=== PATIENT | male | born 1965 | race Caucasian/White ===

== ENCOUNTER 2016-11-10 11:20 | Observation (INO) | payer MEDICARE, OTHER ==
[~2016-11-10] VITALS: Ht 170.2 cm; Wt 103.5 kg
[~2016-11-10 11:20] MED LIST: ACET1TAB40 PO; AMLO-147 PO; AMOX1TAB10 PO; ASPI-535 PO; ATOR40TA68 PO; BACTDS PO; BENA40TA54 PO; CEPH-443 PO; FLUT9.9S NASAL; METO100T13 PO; SPIR25TA PO; TICA90TA PO
[2016-11-10 13:52] LABS: BASOPHIL # 0.1 10^3/ul (0.0-0.1); BASOPHILS % 0.6 % (0.0-2.0); EOSINOPHILS # 0.1 10^3/ul (0.0-0.5); EOSINOPHILS % 1.2 % (0.0-7.0); HEMATOCRIT 47.5 % (42.0-52.0); HEMOGLOBIN 16.3 g/dl (14.0-18.0); LYMPHOCYTES # 1.3 10^3/ul (0.8-2.9); LYMPHOCYTES % 15.2 % (15.0-51.0); MEAN CORPUSCULAR HEMOGLOBIN 32.4 pg (29.0-33.0); MEAN CORPUSCULAR HGB CONC 34.3 g/dl (32.0-37.0); MEAN CORPUSCULAR VOLUME 94.4 fl (82.0-101.0); MEAN PLATELET VOLUME 9.6 fl (7.4-10.4); MONOCYTE # 0.5 10^3/ul (0.3-0.9); NEUTROPHILS % 76.5 % (39.0-77.0); PLATELET COUNT 294 10^3/UL (140-415); RED BLOOD COUNT 5.03 10^6/ul (4.70-6.10); RED CELL DISTRIBUTION WIDTH 13.3 % (11.5-14.5); WHITE BLOOD COUNT 8.3 10^3/ul (4.8-10.8)
--- NOTE | 2016-11-10 13:54 | RADRPT ---
PROCEDURE: Chest x-ray CLINICAL INDICATION: Chest pain TECHNIQUE: Chest single view COMPARISON: 05/10/2013 FINDINGS: There is stable moderate cardiomegaly. The pulmonary vessels are normal in caliber. There is linear right lower lobe atelectasis. Lungs otherwise clear. Costophrenic angles are sharp. The bony thorax is unremarkable. IMPRESSION: 1. Stable mild cardiomegaly. 2. Linear right lower lobe atelectasis RPTAT: HH .Kaushik Hdz MD, Date Time Electronically viewed and signed by .Kaushik Hdz MD, on 11/10/2016 13:53 .W/
--- NOTE | 2016-11-10 13:57 | ERA ---
ER Documentation Chief Complaint Date/Time DATE: 11/10/16 TIME: 13:51 Chief Complaint loss balance x 3 days, swelling legs, pt deaf, has cerebral palsy HPI This is a 51-year-old male with a past medical history of cerebral palsy, deafness, hypertension, hyperlipidemia, coronary artery disease with a previous [place] status post stenting, currently on Brilinta and aspirin, congestive heart failure with chronic lower extremity edema on Aldactone now presenting with 2-3 days of lightheadedness, dizziness, intermittent left-sided chest pressure and worsening lower extremity edema. The patient wrote a note to his mom this morning indicating that he has had issues with lightheadedness and generally feeling unwell and felt that he needed to be evaluated by a doctor. The patient currently has no fever or chills. He does not feel congested. He has had no cold or flulike symptoms. He currently does not have any chest pain. He is not short of breath. He does not have any abdominal pain, but he does feel like his abdomen is full. He has had no changes to bowel movements or urination. The patient does endorse heaviness in his legs but no numbness or tingling. He states that they feel heavy because they feel full. ROS All systems reviewed and are negative except as per history of present illness. Medications Home Meds Reported Medications Fluticasone-Vilanterol (Breo Ellipta Inhaler) 100-25 Mcg/Actuation Aer.pow.ba, 1 PUFF INHALATION QAM, #1 INHALER 11/10/16 Furosemide* (Furosemide*) 40 Mg Tablet, 40 MG PO DAILY, TAB 11/10/16 Metoprolol Succinate* (Toprol XL*) 100 Mg Tab.sr.24h, 100 MG PO DAILY, TAB 06/20/15 Amlodipine Besylate* (Amlodipine Besylate*) 10 Mg Tablet, 10 MG PO DAILY 05/10/13 Spironolactone* (Aldactone*) 25 Mg Tablet, 25 MG PO DAILY 05/10/13 Benazepril Hcl* (Lotensin*) 40 Mg Tablet, 40 MG PO DAILY 05/10/13 Aspirin Ec (Aspir 81) 81 Mg Tablet.dr, 81 MG PO DAILY 05/10/13 Discontinued Reported Medications Atorvastatin* (Atorvastatin*) 40 Mg Tablet, 40 MG PO HS 05/10/13 Ticagrelor* (Brilinta*) 90 Mg Tablet, 90 MG PO BID 05/10/13 Discontinued Scripts Acetaminophen with Codeine (Acetaminophen-Cod #3 Tablet) 1 Each Tablet, 1 TAB PO Q6H Y for PAIN, #10 TAB Prov:DAHLIA LEMONS MD 12/17/15 Cephalexin* (Keflex*) 500 Mg Capsule, 500 MG PO QID for 10 Days, CAP Prov:DAHLIA LEMONS MD 12/17/15 Sulfamethoxazole-Trimethoprim* (Bactrim* DS) 800-160 Mg Tab, 1 TAB PO BID for 10 Days, TAB Prov:DAHLIA LEMONS MD 12/17/15 Amox Tr/Potassium Clavulanate (Amox Tr-K Clv 875-125 Mg Tab) 1 Tab Tablet, 1 TAB PO BID, #20 TAB Prov:CARMITA SOLO 06/20/15 Fluticasone Propionate (Flonase Allergy Relief) 9.9 Ml [place].susp, 1 SPRAY NASAL BID, #1 BOTTLE TO EACH NOSTRIL Prov:CARMITA SOLO 06/20/15 Allergies Allergies: Coded Allergies: No Known Allergy (Unverified , 11/10/16) PMhx/Soc History of Surgery: No (ORTHOPEDIC ON LEGS R/T HX OF CP, STENT PLACEMENT) Anesthesia Reaction: No Hx Neurological Disorder: Yes (R/T CEREBRAL PALSY) Hx Respiratory Disorders: No Hx Cardiac Disorders: Yes (HTN, STENT PLACED, [place]) Hx Psychiatric Problems: No Hx Miscellaneous Medical Probl: No Hx Alcohol Use: No Hx Substance Use: No Hx Tobacco Use: No Smoking Status: Never smoker FmHx Family History: coronary disease, No diabetes Physical Exam Vitals Vital Signs Date Time Temp Pulse Resp B/P Pulse Ox O2 Delivery O2 Flow Rate FiO2 11/10/16 14:40 98.2 79 18 115/78 100 Room Air 11/10/16 13:44 Nasal Cannula 11/10/16 12:58 98.0 77 20 126/78 100 Room Air 11/10/16 11:30 98.1 74 18 120/74 99 Physical Exam Const: Well Nourished, NAD Head: Atraumatic Eyes: Normal Conjunctiva ENT: Normal External Ears, Nose and Mouth. Neck: Full range of motion. ~ No meningismus. Resp: Clear to auscultation bilaterally Cardio: Regular rate and rhythm, no murmurs Abd: Soft, non tender. Distended. Normal bowel sounds Skin: No petechiae or rashes Back: No midline or flank tenderness, no ulcers Ext: No cyanosis. 2+ BLE edema, limited ROM at hips 2/2 heaviness of his legs Neur: Awake and alert, No focal deficits, CN intact, sensation intact, mild spastic plegia to BLE Psych: Normal Mood and Affect Result Diagram: 11/10/16 1332 11/10/16 1332 Results 24 hrs Laboratory Tests Test 11/10/16 13:32 White Blood Count 8.310^3/ul Red Blood Count 5.0310^6/ul Hemoglobin 16.3g/dl Hematocrit 47.5% Mean Corpuscular Volume 94.4fl Mean Corpuscular Hemoglobin 32.4pg Mean Corpuscular Hemoglobin Concent 34.3g/dl Red Cell Distribution Width 13.3% Platelet Count 91201^3/UL Mean Platelet Volume 9.6fl Neutrophils % 76.5% Lymphocytes % 15.2% Monocytes % 6.0% Eosinophils % 1.2% Basophils % 0.6% Nucleated Red Blood Cells % 0.0/100WBC Neutrophils # (Manual) 6.310^3/ul Lymphocytes # 1.310^3/ul Monocytes # 0.510^3/ul Eosinophils # 0.110^3/ul Basophils # 0.110^3/ul Nucleated Red Blood Cells # 0.010^3/ul Prothrombin Time 11.9Sec Prothrombin Time Ratio 0.9 INR International Normalized Ratio 0.88 Activated Partial Thromboplast Time 32.0Sec Sodium Level 139mmol/L Potassium Level 4.6mmol/L Chloride Level 102mmol/L Carbon Dioxide Level 26mmol/L Anion Gap 16 Blood Urea Nitrogen 11mg/dl Creatinine 1.05mg/dl Glucose Level 96mg/dl Calcium Level 10.0mg/dl Total Bilirubin 0.2mg/dl Direct Bilirubin 0.00mg/dl Indirect Bilirubin 0.2mg/dl Aspartate Amino Transf (AST/SGOT) 21IU/L Alanine Aminotransferase (ALT/SGPT) 30IU/L Alkaline Phosphatase 87IU/L Troponin I < 0.012ng/ml B-Type Natriuretic Peptide 115PG/ML Total Protein 8.4g/dl Albumin 4.6g/dl Globulin 3.80g/dl Albumin/Globulin Ratio 1.21 Procedures/MDM The patient's presenting with fatigue, intermittent lightheadedness and progressive worsening lower extremity edema. This is been significantly distressing to the family and patient. He presents for further evaluation. EKG Read by me: Rate/Rhythm: Regular rate and rhythm at a rate of 76 Intervals: Normal [place]: Normal No St or [place] changes Impression: No evidence of acute ischemia or arrhythmia His CXR was read by the radiologist as the following: CXR FINDINGS: There is stable moderate cardiomegaly. The pulmonary vessels are normal in caliber. There is linear right lower lobe atelectasis. Lungs otherwise clear. Costophrenic angles are sharp. The bony thorax is unremarkable. IMPRESSION: Stable mild cardiomegaly. Linear right lower lobe atelectasis Electronically viewed and signed by .Kaushik Hdz MD, MD on 11/10/2016 13:53 The patient's CMP and CBC were unremarkable. The patient's troponin is negative. The patient's BNP is not elevated. I see no signs of hepatic or renal dysfunction. I see no evidence in the blood work for a worsening cardiac pathology. I discussed the case with the patient's primary care physician, Dr. Leon, who felt that the patient warranted admission given the significant concerns of the patient and his mother. The patient will be admitted under his service on a medical/surgical floor for increased diuresis given his significant bilateral lower extremity edema. I do not see any signs of cellulitis clinically. My suspicion for bilateral DVT is low, but a Doppler may be warranted in the hospital if there is no significant improvement after diuresis. Departure Diagnosis: Primary Impression: Bilateral lower extremity edema Condition: KEVIN Altamirano MD Nov 10, 2016 13:57 Electronically viewed and signed by .Kaushik Hdz MD, MD on 11/10/2016 13:53 The patient's CMP and CBC were unremarkable. The patient's troponin is negative. The patient's BNP is not elevated. I see no signs of hepatic or renal dysfunction. I see no evidence in the blood work for a worsening cardiac pathology. I discussed the case with the patient's primary care physician, Dr. Leon, who felt that the patient warranted admission given the significant concerns of the patient and his mother. The patient will be admitted under his service on a medical/surgical floor for increased diuresis given his significant bilateral lower extremity edema. I do not see any signs of cellulitis clinically. My suspicion for bilateral DVT is low, but a Doppler may be warranted in the hospital if there is no significant improvement after diuresis. Departure Diagnosis: Primary Impression: Bilateral lower extremity edema KEVIN SIDDIQUI MD Nov 10, 2016 13:57
[2016-11-10 14:07] LABS: INR 0.88; PROTIME 11.9 Sec (12.2-14.2); PT RATIO 0.9
[2016-11-10 14:16] LABS: ALANINE AMINOTRANSFERASE 30 IU/L (13-69); ALBUMIN 4.6 g/dl (3.3-4.9); ALBUMIN/GLOBULIN RATIO 1.21; ALKALINE PHOSPHATASE 87 IU/L (42-121); ANION GAP 16 (8-16); ASPARTATE AMINO TRANSFERASE 21 IU/L (15-46); BILIRUBIN,INDIRECT 0.2 mg/dl (0-1.1); BILIRUBIN,TOTAL 0.2 mg/dl (0.2-1.3); BLOOD UREA NITROGEN 11 mg/dl (7-20); CARBON DIOXIDE 26 mmol/L (21-31); CHLORIDE 102 mmol/L (97-110); GLUCOSE 96 mg/dl (70-220); POTASSIUM 4.6 mmol/L (3.5-5.1); SODIUM 139 mmol/L (135-144); TOTAL PROTEIN 8.4 g/dl (6.1-8.1)
[2016-11-10 14:28] LABS: B-TYPE NATRIURETIC PEPTIDE 115 PG/ML (0-125)
[2016-11-10 14:36] LABS: TROPONIN-I < 0.012 ng/ml (0.00-0.12)
[2016-11-10 15:26] LABS: CREATININE 1.05 mg/dl (0.61-1.24)
[2016-11-10] MEDS ORDERED: FLUT1AER INHALATION (16:42)
[2016-11-10] MEDS ORDERED: FURO40TA4 PO (16:42)
[2016-11-10] MEDS ORDERED: ONDANSETRON 4 MG INJ IV PRN ×2 (17:00→21:00)
[2016-11-10] MEDS ORDERED: ACETAMINOPHEN 325 MG TAB PO PRN ×2 (17:00→21:00)
[2016-11-10 18:14] VITALS: PULSE 69; TEMP 98.1
[2016-11-10 19:54] VITALS: Ht 170.2 cm; Wt 103.5 kg
--- NOTE | 2016-11-10 19:54 | RADRPT ---
PROCEDURE: ULTRASOUND OF THE BILATERAL LOWER EXTREMITY VENOUS SYSTEMS WITH DOPPLER CLINICAL INDICATION: 51 years of age, male. Bilateral leg swelling . COMPARISON: None available. TECHNIQUE: Real-time longitudinal and transverse sonographic mtaa scale imaging with and without com pression, as well as color and duplex Doppler imaging before and after augmentation, was obtained of the deep system of the bilateral lower extremities, including the common femoral, femoral, poplitea l, posterior tibial, and peroneal veins. FINDINGS: Right common femoral vein: No evidence of thrombus. Right femoral vein: No evidence of thrombus. Right popliteal vein: No evidence of thrombus. Right calf veins: Patent where visualized. Left common femoral vein: No evidence of thrombus. Left femoral vein: No evidence of thrombus. Left popliteal vein: No evidence of thrombus. Left calf veins: Patent where visualized. Additional comment: None. IMPRESSION: Negative for ultrasound evidence of deep venous thrombosis in the right or left lower extremity. RPTAT: HCTS Physician Axel Date Time Electronically viewed and signed by Physician Axel on 11/10/2016 19:53 BHAVIK/
[2016-11-10 20:13] VITALS: BP 132/75; RESP 19
[2016-11-10] MEDS ORDERED: morphine 2 MG INJ IV PRN (21:00)
[2016-11-10] MEDS ORDERED: NACL 0.9% 3 ML SYG IV SCH (21:00)
[2016-11-10] MEDS ORDERED: ZOLPIDEM 5 MG TAB PO PRN (21:00)
[2016-11-10] MEDS ORDERED: DOCUSATE SODIUM 100 MG CAP PO PRN (21:00)
[2016-11-10] MEDS ORDERED: ALBUTEROL/IPRATROPIUM (NEB) 3 ML AMP HHN PRN (21:00)
[2016-11-10] MEDS ORDERED: LORAZEPAM 0.5 MG TAB PO PRN (21:00)
[2016-11-10] MEDS ORDERED: MAGNESIUM HYDROXIDE 30ML CUP PO PRN (21:00)
[2016-11-10] MEDS: SALMETEROL/FLUTICASONE 250/50 INHA INH SCH (21:12)
[2016-11-10] MEDS: FUROSEMIDE 40 MG INJ IV SCH (21:13)
--- NOTE | 2016-11-10 22:36 | HP ---
DATE OF ADMISSION: 11/10/2016 REASON FOR ADMISSION: Lower extremity edema, unsteady gait. HISTORY OF PRESENT ILLNESS: Patient is a 51-year-old male, very well known to me, with history of cerebral palsy, walks with crutches. He is also deaf. Patient has history of nephrolithiasis, hypertension, dyslipidemia, coronary artery disease, status post PCI of the RCA, on Brilinta, also history of [place], constipation, hyperuricemia, nephrolithiasis, status post lithotripsy in the past. He has also mild asthma. Patient was in his usual state of health up until a few days prior to admission, when he noted increasing lower extremity edema. On the day of admission and the day prior, his edema has worsened, to the point that he could not walk straight. He almost falls. He presented to the ER with increased lower extremity pain and discomfort. In the ER patient was evaluated. Vital signs were all stable. Patient was noted to have +3 pitting edema. In the ER patient received Zofran and Tylenol and was admitted for further care. Otherwise, he denies any chest pain. He denies any shortness of breath. Denies any fever or chills. Denies any other complaints besides the edema and unstable gait and discomfort and pain in the lower extremities. PAST MEDICAL HISTORY: Includes coronary artery disease, deafness, cerebral palsy, nephrolithiasis, history of tobacco use in the past, asthma, CHF, [place]. SOCIAL HISTORY: Smokes 1-2 packs a day more than 8 years ago. Uses . He likes to drink soda. No IV drug use. ALLERGIES: NO KNOWN DRUG ALLERGIES. FAMILY HISTORY: Father from cardiac-related problems, and he had a CABG. Mother had breast cancer. She is doing well. PAST SURGICAL HISTORY: Ligament surgery, knee surgeries. REVIEW OF SYSTEMS: Per HPI. MEDICATIONS: Include: 1. Breo 1 puff daily. 2. Aspirin 81 mg a daily. 3. Metoprolol succinate 100 mg daily. 4. Furosemide 40 mg daily. 5. Amlodipine 10 mg daily. 6. Benazepril 40 mg daily. 7. Aldactone 25 mg daily. PHYSICAL EXAMINATION: VITAL SIGNS: Temperature 98, pulse 65, respirations 19, blood pressure 132/75, saturation 93 percent to 100 percent on room air. GENERAL: Patient is in no acute distress, well-built. Patient is slightly pale. CARDIOVASCULAR: S1 and S2. Faint wheezing bilaterally. ABDOMEN: Soft, nontender. LOWER EXTREMITIES: +3 edema, with slight redness, more redness and pedal edema; it is quite significant. Patient overall moving all extremities. LABORATORY: Sodium is 139, potassium 4.6, chloride 102, bicarb 26, BUN is 11, creatinine 1.05, glucose 96. LFTs are normal. Troponin negative. INR 0.88. CBC: White count 8.3, hemoglobin 16.3, hematocrit 47, platelet count 294, neutrophils 77 percent, lymphocytes 15 percent. A lower extremity venous ultrasound is negative for DVT. This was done only of the right lower extremity. Chest x-ray shows stable mild cardiomegaly, linear right lower lobe atelectasis, right lower lobe atelectasis. EKG showed normal sinus rhythm, 76 beats per minute. ASSESSMENT AND PLAN: This is a 51-year-old male, with history of cerebral palsy, peripheral edema, asthma, hypertension, coronary artery disease, history of myocardial infarction, status post percutaneous coronary intervention of the right coronary artery, now presented with increased lower extremity edema, severe, with unsteady gait. 1. Lower extremity edema, severe, likely from peripheral vascular disease and his cerebral palsy. Patient will be given IV diuretic therapy with 40 IV Lasix twice a day. Keep legs elevated. Potassium supplement will be provided and will monitor. 2. History of asthma. Breathing treatment p.r.n. and will be provided O2 support as needed. 3. Coronary artery disease. Continue aspirin, beta blockers, and Lovenox will be started for deep venous thrombosis prophylaxis. No evidence of deep venous thrombosis. 4. Stable positive supportive care. 5. Once edema has improved, monitor gait and mobility. 6. History of hyperuricemia. Previously on allopurinol. 7. Diet. Will be placed on 2-g sodium diet. 8. Disposition soon. Case discussed with mother over the phone. Dictated By: Devin Leon MD /lisa/charly /Document#: [id number]
[2016-11-11 02:07] VITALS: BP 115/66; RESP 19
[2016-11-11] MEDS: FUROSEMIDE 40 MG INJ IV SCH ×2 (05:45→18:37)
[2016-11-11] MEDS ORDERED: PANTOPRAZOLE (EC) 40 MG TAB PO SCH (06:00)
[2016-11-11 06:08] LABS: BASOPHILS % 0.7 % (0.0-2.0); EOSINOPHILS # 0.2 10^3/ul (0.0-0.5); EOSINOPHILS % 3.9 % (0.0-7.0); HEMATOCRIT 42.5 % (42.0-52.0); HEMOGLOBIN 14.9 g/dl (14.0-18.0); LYMPHOCYTES # 1.9 10^3/ul (0.8-2.9); LYMPHOCYTES % 31.1 % (15.0-51.0); MEAN CORPUSCULAR HEMOGLOBIN 33.3 pg (29.0-33.0); MEAN CORPUSCULAR HGB CONC 35.1 g/dl (32.0-37.0); MEAN CORPUSCULAR VOLUME 94.9 fl (82.0-101.0); MEAN PLATELET VOLUME 9.9 fl (7.4-10.4); MONOCYTE # 0.6 10^3/ul (0.3-0.9); MONOCYTES % 10.3 % (0.0-11.0); NEUTROPHILS % 53.5 % (39.0-77.0); PLATELET COUNT 258 10^3/UL (140-415); RED BLOOD COUNT 4.48 10^6/ul (4.70-6.10); WHITE BLOOD COUNT 5.9 10^3/ul (4.8-10.8)
[2016-11-11 06:38] LABS: ALBUMIN 3.6 g/dl (3.3-4.9); ALBUMIN/GLOBULIN RATIO 1.24; BILIRUBIN,INDIRECT 0.5 mg/dl (0-1.1); BILIRUBIN,TOTAL 0.5 mg/dl (0.2-1.3); CALCIUM 9.3 mg/dl (8.4-10.2); CREATININE 1.02 mg/dl (0.61-1.24); POTASSIUM 3.6 mmol/L (3.5-5.1); TOTAL PROTEIN 6.5 g/dl (6.1-8.1)
[2016-11-11 07:02] LABS: THYROID STIMULATING HORMONE 7.71 MIU/L (0.465-4.680)
[2016-11-11 07:49] VITALS: BP 129/74; RESP 16
--- NOTE | 2016-11-11 08:36 | CONS ---
Date/Time of Note Date/Time of Note DATE: 11/11/16 TIME: 08:28 Assessment/Plan Assessment/Plan Chief Complaint/Hosp Course A/P: 1. LE edema: probably related to norvasc. R/O CHF ECHO was ordered. cont CIARRA Cont aldactone lasix as tolerated. 2. HTN: well controlled now cont aldactone toprol xl and CIARRA stop norvasc due to edema 3. CAD: HX [place], HX PCI RCA: no angina now. cont ASA/ toprol will add statin. check lipid panel 4. dyslipidemia: will add lipitor and check lipid panel 5. hx cerebral palsy and deafness: defer to IM. Thank you for this referral. I will continue to follow along with you. SHANE ISAACS MD [facility] Problems: Consultation Date/Type/Reason Admit Date/Time Nov 10, 2016 at 16:50 Date of Consultation: Nov 11, 2016 Type of Consultation: CARDIOLOGY Reason for Consultation CAD. LE Edema./ R/O CHF. Referring Provider: JANIS AC MD Hx of Present Illness CC: LE edema HPI: dear Dr. Ac thank you for this referral. Patient is a 51-year-old male, very well known to me, with history of cerebral palsy, CAD who walks with crutches. He is also deaf. Patient was admitted with increasing lower extremity edema. Appears to be bilateral. History was obtained from the patient was a difficult to get history from him due to his deafness. From discussion with the physicians including Dr. Moya Review of the old chart. Patient denies any chest pain or pressure to me denies any PND or orthopnea to me. The leg swelling has been severe over the past few days to weeks. It has improved today. He has been placed on IV Lasix. PAST MEDICAL HISTORY: Includes coronary artery disease, s/p [place] 2012, PCI RCA 2012. deafness, cerebral palsy, nephrolithiasis, history of tobacco use in the past, asthma, CHF, [place]. HTN, dyslipidemia. SOCIAL HISTORY: Smokes 1-2 packs a day more than 8 years ago. He likes to drink soda. No IV drug use. ALLERGIES: NO KNOWN DRUG ALLERGIES. FAMILY HISTORY: Father from cardiac-related problems, and he had a CABG. Mother had breast cancer. She is doing well. PAST SURGICAL HISTORY: Ligament surgery, knee surgeries. PCI RCA 2012 REVIEW OF SYSTEMS: as above only. he walks with crutches MEDICATIONS: Include: 1. Breo 1 puff daily. 2. Aspirin 81 mg a daily. 3. Metoprolol succinate 100 mg daily. 4. Furosemide 40 mg daily. 5. Amlodipine 10 mg daily. 6. Benazepril 40 mg daily. 7. Aldactone 25 mg daily. Social History Smoking Status: Never smoker Exam/Review of Systems Vital Signs Vitals Vital Signs Date Time Temp Pulse Resp B/P Pulse Ox O2 Delivery O2 Flow Rate FiO2 11/11/16 07:49 97.6 73 16 129/74 93 11/10/16 18:14 Room Air Intake and Output 11/10/16 11/10/16 11/11/16 15:00 23:00 07:00 Intake Total 960 ml Output Total 1800 ml Balance -840 ml Exam General: no acute distress HEENT: NC/AT. pupils are equal. round. NECK: NO JVD. no stridor. CV: RRR. systolic murmur; no gallop or rubs. PULM: no wheezing or rhonchi. GI: SOFT, NT, ND, no rebound or guarding Extremity: + B/L LE edema. no clubbing. neuro: awake and alert, OX3. Psych: calm and pleasant rectal: deferred : normal ECG reviewed NSR normal Results Result Diagram: 11/11/16 0520 11/11/16 0520 Results 24 hrs Laboratory Tests Test 11/10/16 13:32 11/11/16 05:20 White Blood Count 8.3 5.9 # Red Blood Count 5.03 4.48 L Hemoglobin 16.3 14.9 Hematocrit 47.5 42.5 Mean Corpuscular Volume 94.4 94.9 Mean Corpuscular Hemoglobin 32.4 33.3 H Mean Corpuscular Hemoglobin Concent 34.3 35.1 Red Cell Distribution Width 13.3 13.0 Platelet Count 294 258 Mean Platelet Volume 9.6 9.9 Neutrophils % 76.5 53.5 Lymphocytes % 15.2 31.1 Monocytes % 6.0 10.3 Eosinophils % 1.2 3.9 Basophils % 0.6 0.7 Nucleated Red Blood Cells % 0.0 0.0 Neutrophils # (Manual) 6.3 3.2 Lymphocytes # 1.3 1.9 Monocytes # 0.5 0.6 Eosinophils # 0.1 0.2 Basophils # 0.1 0.0 Nucleated Red Blood Cells # 0.0 0.0 Prothrombin Time 11.9 L Prothrombin Time Ratio 0.9 INR International Normalized Ratio 0.88 Activated Partial Thromboplast Time 32.0 Sodium Level 139 137 Potassium Level 4.6 3.6 Chloride Level 102 99 Carbon Dioxide Level 26 31 Anion Gap 16 11 Blood Urea Nitrogen 11 12 Creatinine 1.05 1.02 Glucose Level 96 83 Calcium Level 10.0 9.3 Total Bilirubin 0.2 0.5 Direct Bilirubin 0.00 0.00 Indirect Bilirubin 0.2 0.5 Aspartate Amino Transf (AST/SGOT) 21 18 Alanine Aminotransferase (ALT/SGPT) 30 29 Alkaline Phosphatase 87 65 Troponin I < 0.012 B-Type Natriuretic Peptide 115 Total Protein 8.4 H 6.5 # Albumin 4.6 3.6 # Globulin 3.80 H 2.90 Albumin/Globulin Ratio 1.21 1.24 Hemoglobin A1c 5.0 Thyroid Stimulating Hormone (TSH) 7.710 H Medications Medications Current Medications Ondansetron HCl (Zofran Inj) 4 mg Q6H PRN IV NAUSEA AND/OR VOMITING; Start 11/10 at 21:00 Acetaminophen (Tylenol Tab) 650 mg Q6H PRN PO PAIN LEVEL 1-3 OR FEVER; Start at 21:00 Morphine Sulfate (morphine) 2 mg Q4H PRN IV SEVERE PAIN LEVEL 7-10; Start at 21:00 Docusate Sodium (Colace) 100 mg Q12H PRN PO CONSTIPATION; Start 11/10/16 at 21: 00 Magnesium Hydroxide (Milk Of Mag) 30 ml DAILY PRN PO CONSTIPATION; Start at 21:00 Zolpidem Tartrate (Ambien) 5 mg QHS PRN PO SLEEP; Start 11/10/16 at 21:00 Pantoprazole (Protonix Tab) 40 mg DAILY@06 PO Last administered on 11/11/16t 05: 45; Admin Dose 40 MG; Start 11/11/16 at 06:00 Enoxaparin Sodium (Lovenox) 40 mg DAILY SC ; Start 11/11/16 at 09:00 Aspirin (Aspirin) 81 mg DAILY PO ; Start 11/11/16 at 09:00 Metoprolol Succinate (Toprol Xl) 50 mg DAILY PO ; Start 11/11/16 at 09:00 Spironolactone (Aldactone) 25 mg DAILY PO ; Start 11/11/16 at 09:00 Salmeterol Xinafoate/ Fluticasone (Advair 250/50 Diskus) 1 inh BID INH Last administered on 11/10/16t 21:12; Admin Dose 1 INH; Start 11/10/16 at 21:00 Lorazepam (Ativan) 0.5 mg Q6H PRN PO ANXIETY; Start 11/10/16 at 21:00 Atorvastatin Calcium (Lipitor) 20 mg HS PO ; Start 11/11/16 at 21:00; Status UNV Benazepril HCl (Lotensin) 20 mg DAILY PO ; Start 11/11/16 at 09:00; Status UNV SHANE ISAACS MD Nov 11, 2016 08:36
[2016-11-11] MEDS ORDERED: SPIRONOLACTONE 25 MG TAB PO SCH (09:00)
[2016-11-11] MEDS ORDERED: ASPIRIN 81 MG TAB PO SCH (09:00)
[2016-11-11] MEDS ORDERED: BENAZEPRIL 20 MG TAB PO SCH (09:00)
[2016-11-11] MEDS ORDERED: LOSARTAN 25 MG TAB PO SCH (09:00)
[2016-11-11] MEDS ORDERED: ENOXAPARIN 40 MG/0.4 ML SYG SC SCH (09:00)
[2016-11-11] MEDS ORDERED: METOPROLOL (XL) 50 MG TAB PO SCH (09:00)
[2016-11-11 09:09] LABS: CHOL/HDL RATIO 5.2 RATIO
[2016-11-11] MEDS: SALMETEROL/FLUTICASONE 250/50 INHA INH SCH (09:31)
--- NOTE | 2016-11-11 14:27 | PDOCDIS ---
Discharge Instructions CONDITION Patient Condition: Stable HOME CARE INSTRUCTIONS: Special Diet: 2GM NA ACTIVITY: Activity Restrictions: Slowly Increase Activity FOLLOW UP/APPOINTMENTS Follow-up Plan follow up pmd within a week, see prescriptions JANIS AC MD Nov 11, 2016 14:27
[2016-11-11] MEDS ORDERED: FURO40TA4 PO (14:28)
[2016-11-11] MEDS ORDERED: ATOR20TA65 PO (14:33)
[2016-11-11] MEDS ORDERED: ATORVASTATIN 20 MG TAB PO SCH (21:00)
--- NOTE | 2016-11-12 04:48 | DS ---
DATE OF ADMISSION: 11/10/2016 DATE OF DISCHARGE: 11/11/2016 REASON FOR ADMISSION: Lower extremity edema, Unsteady gait and lower extremity pain. HOSPITAL COURSE: Patient is a 51-year-old male, very well-known to me, with history of cerebral palsy, walks with crutches, history of deafness, history of nephrolithiasis, hypertension, dyslipidemia, coronary artery disease, status post PCI of the RCA, previously on Brilinta, also history of [place], constipation, hyperuricemia, nephrolithiasis, status post lithotripsy in the past. Also history of asthma. Patient was in usual state of health up until the last few days. Prior to admission, he noted worsening lower extremity edema. On the day of admission, it was much more severe, to the point that he could not walk. He presented to the ER for evaluation. Family was very concerned. It was decided to admit the patient under observation. During his stay, he was placed on IV Lasix with good response. I also consulted the loom operator, Dr. Mensah, and he recommended to stop the amlodipine, which may exacerbate his edema and replace them with statins. The patient is doing better. He wants to be discharge. Vitals are stable. Temperature 97.6, pulse 73, respirations 16, blood pressure 110/74, saturation 93 percent to 100 percent. DISCHARGE MEDICATIONS: The patient was discharged with this, with the following medications: 1. Atorvastatin 10 mg at bedtime. 2. Aspirin 81 mg daily. 3. Benazepril 40 mg daily. 4. Breo 10/25 daily. 5. Metoprolol succinate daily. 6. Aldactone 25 mg daily. 7. Lasix 40 mg b.i.d. for 3 days, then daily. FINAL DIAGNOSES: 1. Lower extremity edema. 2. Peripheral vascular disease. 3. Coronary artery disease. 4. Hypertension. 5. Cerebral palsy. 6. Hyperuricemia. 7. Hypertension. 8. Dyslipidemia. DISCHARGE CONDITION: The edema is much improved. It was +3, it went to trace +1, even better. Edema right Now is nonpitting. Keep leg elevated as well. FOLLOWUP: The patient to follow in my office within a week. LABS: Revealed cholesterol 179, LDL of 115. In the setting of coronary artery disease, definitely would benefit from statin. Continue aspirin, as patient finished his course of Brilinta. BNP was 171, not significantly high. Labs are otherwise unremarkable. Lower extremity venous ultrasound was negative. A chest x-ray was unremarkable as well. Patient will be discharged in stable condition. Case discussed with the patient's mother, Nelly. She is aware of plan of care. Any change in condition to call 911. Dictated By: Devin Leon MD /lisa/davidson /Document#: [id number]
--- NOTE | 2016-11-13 19:10 | RADRPT ---
Echocardiogram Report Patient Name: IRIS BARR Gender: Male Date: 1965 Study Date: 11-Nov-2016 Mortgage Operations Manager: Roxi Wilson [facility] Location: 2246 Ref. Physician: SHANE MENSAH Quality: Adequate Procedures: Transthoracic echocardiogram with complete 2D, M-Mode, and doppler examination. Indications: Congestive Heart Failure, CAD. 2D/M Mode Doppler Measurement Value Normal Ranges Measurement Value Normal Ranges LVIDd 2D 4.5 3.5 - 5.6 cm AV Peak Glenn 1.6 m/sec LVIDs 2D 3.6 2.1 - 4.1 cm AV Peak PG 10.7 mmHg LVPWd 2D 1.0 0.6 - 1.1 cm LVOT Peak Glenn 0.8 m/sec IVSd 2D 1.1 0.6 - 1.1 cm LVOT Peak PG 2.7 mmHg AoR Diam 2D 2.9 2.0 - 3.7 cm MV E Peak Glenn 0.7 m/sec EDV 2D 93.1 cm3 MV A Peak Glenn 0.7 m/sec ESV 2D 46.1 cm3 MV E/A 1.0 LA Dimen 2D 3.0 2.3 - 4.0 cm MV Decel Time 255 msec MV Decel Campbell 3 MV E/A 1.0 TR Peak Glenn 2.8 m/sec TR Peak PG 31.8 mmHg RVSP 42.0 mmHg Findings Left Ventricle: Normal left ventricular systolic function. Normal left ventricular cavity size. Normal left ventricular wall thickness. Ejection fraction is visually estimated at 60 %. Tissue Doppler/Mitral Doppler indices are consistent with impaired relaxation (Stage I diastolic dysfunction). Right Ventricle: Normal right ventricular size. Normal right ventricular systolic function. Left Atrium: The left atrium is normal in size. Right Atrium: Not well visualized. Mitral Valve: Normal appearance of the mitral valve. Normal appearance and function of the mitral valve with trace physiologic regurgitation. Aortic Valve: Normal appearance of the aortic valve. No significant aortic stenosis or insufficiency. Tricuspid Valve: Normal appearance and function of the tricuspid valve with trace physiologic regurgitation. Estimated peak PA systolic pressure 42 mmHg. Pericardium: Normal pericardium with no significant pericardial effusion. Not well visualized. Aorta: Normal aortic root. IVC: Normal size and no respiratory collapse consistent with elevated right atrial pressure. Conclusions 1.Normal left ventricular systolic function. Normal left ventricular cavity size. Normal left ventricular wall thickness. Ejection fraction is visually estimated at 60 %. Tissue Doppler/Mitral Doppler indices are consistent with impaired relaxation (Stage I diastolic dysfunction). 2.The left atrium is normal in size. 3.Normal appearance of the mitral valve. Normal appearance and function of the mitral valve with trace physiologic regurgitation. 4.Normal appearance of the aortic valve. No significant aortic stenosis or insufficiency. 5.Normal appearance and function of the tricuspid valve with trace physiologic regurgitation. Estimated peak PA systolic pressure 42 mmHg. 6.Normal size and no respiratory collapse consistent with elevated right atrial pressure. Electronically Signed By: Shane Mensah 13-Nov-2016 19:09:26 -0700 Patient Name: IRIS BARR Study Date: 11-Nov-2016 [id number]
== END 2016-11-11 19:00 | disposition home or self-care (01) ==
LOC: E/R 11:20 → INTOOBSV 16:50 → PP2 16:50
PROVIDERS: ADMIT Internal Medicine; ATTEND Internal Medicine
DX: R60.0 Localized edema (principal); I73.9 Peripheral vascular disease, unspecified; I25.10 Atherosclerotic heart disease of native coronary artery without angina pectoris; Z95.5 Presence of coronary angioplasty implant and graft; I10 Essential (primary) hypertension; E78.5 Hyperlipidemia, unspecified; Z79.82 Long term (current) use of aspirin; H91.90 Unspecified hearing loss, unspecified ear; G80.9 Cerebral palsy, unspecified; E79.0 Hyperuricemia without signs of inflammatory arthritis and tophaceous disease; I25.2 Old myocardial infarction
CPT/HCPCS: 36415; 71010; 80053; 80061; 83036; 83880; 84443; 84484; 85025; 85610; 85730; 93005; 93306; 93970; 99285; G0378; J1650; J1940; 99217

== ENCOUNTER 2016-11-21 07:34 | Emergency (ER) | payer MEDICARE, OTHER ==
[~2016-11-21] VITALS: Ht 172.7 cm; Wt 81.8 kg
[~2016-11-21 07:34] MED LIST changes: -ACET1TAB40 PO; -AMLO-147 PO; -AMOX1TAB10 PO; +ATOR20TA65 PO; -ATOR40TA68 PO; -BACTDS PO; -CEPH-443 PO; +FLUT1AER INHALATION; -FLUT9.9S NASAL; +FURO40TA4 PO; +METO-336 PO; -METO100T13 PO; -TICA90TA PO
[2016-11-21] MEDS ORDERED: FAMOTIDINE 20 MG INJ IV STA (07:43)
[2016-11-21] MEDS ORDERED: ONDANSETRON 4 MG INJ IV STA (07:43)
[2016-11-21] MEDS ORDERED: morphine 4 MG/ML VIAL IV STA (07:43)
[2016-11-21] MEDS ORDERED: SOD CHLORIDE 0.9% 1,000 ML IV STA (07:43)
[2016-11-21 08:04] VITALS: Ht 172.7 cm; Wt 81.8 kg
[2016-11-21 08:13] LABS: BASOPHIL # 0.1 10^3/ul (0.0-0.1); BASOPHILS % 0.8 % (0.0-2.0); EOSINOPHILS # 0.2 10^3/ul (0.0-0.5); EOSINOPHILS % 2.9 % (0.0-7.0); HEMATOCRIT 44.5 % (42.0-52.0); HEMOGLOBIN 15.6 g/dl (14.0-18.0); MEAN CORPUSCULAR HEMOGLOBIN 33.1 pg (29.0-33.0); MEAN CORPUSCULAR HGB CONC 35.1 g/dl (32.0-37.0); MEAN CORPUSCULAR VOLUME 94.3 fl (82.0-101.0); MEAN PLATELET VOLUME 10.4 fl (7.4-10.4); MONOCYTE # 0.4 10^3/ul (0.3-0.9); MONOCYTES % 7.2 % (0.0-11.0); NEUTROPHIL # 4.4 10^3/ul (1.6-7.5); NEUTROPHILS % 71.9 % (39.0-77.0); PLATELET COUNT 210 10^3/UL (140-415); RED BLOOD COUNT 4.72 10^6/ul (4.70-6.10); RED CELL DISTRIBUTION WIDTH 12.2 % (11.5-14.5); WHITE BLOOD COUNT 6.1 10^3/ul (4.8-10.8)
[2016-11-21 08:32] LABS: ALANINE AMINOTRANSFERASE 26 IU/L (13-69); ALBUMIN 3.9 g/dl (3.3-4.9); ALBUMIN/GLOBULIN RATIO 1.25; ALKALINE PHOSPHATASE 74 IU/L (42-121); ANION GAP 9 (8-16); ASPARTATE AMINO TRANSFERASE 17 IU/L (15-46); BILIRUBIN,INDIRECT 0.2 mg/dl (0-1.1); BILIRUBIN,TOTAL 0.2 mg/dl (0.2-1.3); BLOOD UREA NITROGEN 15 mg/dl (7-20); CALCIUM 9.8 mg/dl (8.4-10.2); CARBON DIOXIDE 30 mmol/L (21-31); CHLORIDE 102 mmol/L (97-110); CREATININE 1.08 mg/dl (0.61-1.24); GLUCOSE 105 mg/dl (70-220); POTASSIUM 3.4 mmol/L (3.5-5.1); SODIUM 138 mmol/L (135-144)
[2016-11-21 08:44] LABS: TROPONIN-I < 0.012 ng/ml (0.00-0.12)
[2016-11-21 08:52] LABS: ADD UMIC NO; UR ASCORBIC ACID NEGATIVE (NEGATIVE); UR BILIRUBIN (Dip) NEGATIVE (NEGATIVE); UR BLOOD (Dip) NEGATIVE (NEGATIVE); UR CLARITY CLEAR (CLEAR); UR COLOR YELLOW (YELLOW); UR GLUCOSE (Dip) NEGATIVE (NEGATIVE); UR KETONES (Dip) NEGATIVE (NEGATIVE); UR LEUKOCYTE ESTERASE (Dip) NEGATIVE Leu/ul (NEGATIVE); UR NITRITE (Dip) NEGATIVE (NEGATIVE); UR SPECIFIC GRAVITY (Dip) 1.016 (1.003-1.030); UR TOTAL PROTEIN (Dip) NEGATIVE (NEGATIVE); UR UROBILINOGEN (Dip) NEGATIVE (NEGATIVE)
--- NOTE | 2016-11-21 09:42 | RADRPT ---
PROCEDURE: CT Abdomen and pelvis without contrast. CLINICAL INDICATION: Lower abdominal pain TECHNIQUE: CT scan of the abdomen and pelvis without contrast was performed on a multidetector hig h-resolution CT scan. Coronal and sagittal reformatted images were obtained from the axial source im ages. Images were reviewed on a high-resolution PACS workstation. The total exam CTDI .51 mG y mGy and the total exam DLP plomrd9780.89 mGy.cm mGy-cm. COMPARISON: None. FINDINGS: The lung bases demonstrate bibasilar atelectasis. The liver and gallbladder appear unremarkable. No intrahepatic or extrahepatic biliary ductal dilata tion. The stomach, spleen, pancreas, bilateral adrenal glands and bilateral kidneys appear unremarkable. The small bowel and colon appear unremarkable. The appendix is visualized within normal limits. The pelvic organs are unremarkable. No intra-abdominal or intrapelvic lymphadenopathy. Atherosclerosis of the aorta and branch vessels. Inferior extent appears unremarkable. Regional skeleton is intact. Multilevel degenerative changes of the thoracolumbar spine. IMPRESSION: Unremarkable noncontrast CT scan of the abdomen pelvis. Please note that evaluation of visceral orga ns are limited without intravenous contrast. RPTAT: QQ Physician Catarina Date Time Electronically viewed and signed by Physician Catarina on 11/21/2016 09:41 /
--- NOTE | 2016-11-21 09:49 | ERD ---
ER Documentation Chief Complaint Date/Time DATE: 11/21/16 TIME: 09:49 Chief Complaint Pt BIB ambulance for c/o AP X 2 days HPI This is a 51-year-old male with history of hypertension, And deafness who presents to the emergency room for evaluation of abdominal pain. Patient is writing down his complaints on the piece of paper and states that he has had lower abdominal pain and cramping for the past 2 days. Mild nausea but no vomiting and no diarrhea. The patient denies any chest pain or any other shortness of breath associated with this. He localizes the abdominal pain to the lower portion of the abdomen and denies any radiation of the pain. ROS All systems reviewed and are negative except as per history of present illness. Medications Home Meds Active Scripts Atorvastatin Calcium (Atorvastatin Calcium) 20 Mg Tablet, 20 MG PO HS for 30 Days, #30 TAB Prov:JANIS AC MD 11/11/16 Furosemide* (Furosemide*) 40 Mg Tablet, 40 MG PO DAILY for 60 Days, #60 TAB 40 bid for 3 days than daily Prov:JANIS AC MD 11/11/16 Reported Medications Fluticasone-Vilanterol (Breo Ellipta Inhaler) 100-25 Mcg/Actuation Aer.pow.ba, 1 PUFF INHALATION QAM, #1 INHALER 11/10/16 Metoprolol Succinate* (Toprol XL*) 100 Mg Tab.sr.24h, 100 MG PO DAILY, TAB 06/20/15 Spironolactone* (Aldactone*) 25 Mg Tablet, 25 MG PO DAILY 05/10/13 Benazepril Hcl* (Lotensin*) 40 Mg Tablet, 40 MG PO DAILY 05/10/13 Aspirin Ec (Aspir 81) 81 Mg Tablet.dr, 81 MG PO DAILY 05/10/13 Allergies Allergies: Coded Allergies: No Known Allergy (Unverified , 11/10/16) PMhx/Soc History of Surgery: Yes Anesthesia Reaction: No Hx Neurological Disorder: Yes (hx of cerebral palsy) Hx Respiratory Disorders: No Hx Cardiac Disorders: Yes (per patient he has a stent in heart ) Hx Psychiatric Problems: No Hx Miscellaneous Medical Probl: Yes (HTN) Hx Alcohol Use: No Hx Substance Use: No Hx Tobacco Use: No Smoking Status: Never smoker Physical Exam Vitals Vital Signs Date Time Temp Pulse Resp B/P Pulse Ox O2 Delivery O2 Flow Rate FiO2 11/21/16 08:04 98.5 72 18 133/84 100 Physical Exam INITIAL VITAL SIGNS: Reviewed by me GENERAL: The patient is well developed and appropriate for usual state of health in no apparent distress HEENT: Pupils equal, round, and reactive to light. EOMI. There is no scleral icterus. NECK: C-spine is soft and supple, there is no meningismus. There is no cervical lymphadenopathy. LUNGS: Clear to auscultation bilaterally. There are no rales, wheezes or rhonchi. HEART: Regular rate and rhythm, no murmurs, clicks, rubs or gallops. ABDOMEN: Right lower quadrant tenderness, left lower quadrant tenderness, suprapubic tenderness to palpation, otherwise soft, non-tender, non-distended. There are bowel sounds in all four quadrants. No rebound or guarding. EXTREMITIES: There is no peripheral cyanosis or edema. No focal swelling or erythema. NEUROLOGICAL: The patient moves all four extremities with 5/5 strength. Cranial nerves II - XII are intact. Normal gait. Alert and oriented SKIN: There is no apparent rash or petechiae. HEME/LYMPHATIC: There is no evidence of excessive bruising or lymphedema. PSYCHIATRIC: The patient does not appear anxious or depressed. Result Diagram: 11/21/16 0750 11/21/16 0750 Results 24 hrs Laboratory Tests Test 11/21/16 07:50 11/21/16 08:30 White Blood Count 6.110^3/ul Red Blood Count 4.7210^6/ul Hemoglobin 15.6g/dl Hematocrit 44.5% Mean Corpuscular Volume 94.3fl Mean Corpuscular Hemoglobin 33.1pg Mean Corpuscular Hemoglobin Concent 35.1g/dl Red Cell Distribution Width 12.2% Platelet Count 96933^3/UL Mean Platelet Volume 10.4fl Neutrophils % 71.9% Lymphocytes % 17.0% Monocytes % 7.2% Eosinophils % 2.9% Basophils % 0.8% Nucleated Red Blood Cells % 0.0/100WBC Neutrophils # 4.410^3/ul Lymphocytes # 1.010^3/ul Monocytes # 0.410^3/ul Eosinophils # 0.210^3/ul Basophils # 0.110^3/ul Nucleated Red Blood Cells # 0.010^3/ul Sodium Level 138mmol/L Potassium Level 3.4mmol/L Chloride Level 102mmol/L Carbon Dioxide Level 30mmol/L Anion Gap 9 Blood Urea Nitrogen 15mg/dl Creatinine 1.08mg/dl Glucose Level 105mg/dl Calcium Level 9.8mg/dl Total Bilirubin 0.2mg/dl Direct Bilirubin 0.00mg/dl Indirect Bilirubin 0.2mg/dl Aspartate Amino Transf (AST/SGOT) 17IU/L Alanine Aminotransferase (ALT/SGPT) 26IU/L Alkaline Phosphatase 74IU/L Troponin I < 0.012ng/ml Total Protein 7.0g/dl Albumin 3.9g/dl Globulin 3.10g/dl Albumin/Globulin Ratio 1.25 Lipase 91U/L Urine Color YELLOW Urine Clarity CLEAR Urine pH 6.0 Urine Specific [place] 1.016 Urine Ketones NEGATIVEmg/dL Urine Nitrite NEGATIVEmg/dL Urine Bilirubin NEGATIVEmg/dL Urine Urobilinogen NEGATIVEmg/dL Urine Leukocyte Esterase NEGATIVELeu/ul Urine Hemoglobin NEGATIVEmg/dL Urine Glucose NEGATIVEmg/dL Urine Total Protein NEGATIVEmg/dl Current Medications Medications (Trade) Dose Ordered Sig/Anna Marie Route PRN Reason Start Time Stop Time Status Last Admin Dose Admin Sodium Chloride (NS) 1,000 ml @ 1,000 mls/hr Q1H STAT IV 11/21/16 07:43 11/21/16 08:42 DC 11/21/16 07:55 Morphine Sulfate (morphine) 4 mg ONCE STAT IV 11/21/16 07:43 11/21/16 07:44 DC 11/21/16 07:54 Ondansetron HCl (Zofran Inj) 4 mg ONCE STAT IV 11/21/16 07:43 11/21/16 07:44 DC 11/21/16 07:55 Famotidine (Pepcid Iv) 20 mg ONCE STAT IV 11/21/16 07:43 11/21/16 07:44 DC 11/21/16 07:54 Procedures/MDM CT abdomen pelvis without;:Unremarkable noncontrast CT scan of the abdomen pelvis. Please note that evaluation of visceral organs are limited without intravenous contrast. EKG: Rate/Rhythm: [Normal Sinus Rhythm] QRS, ST, T-waves: [No changes consistent w/ acute ischemia] Impression: [No evidence of ischemia or arrhythmia] This 51-year-old male presents to the emergency room for evaluation of lower abdominal pain. The patient was hemodynamically stable, nontoxic appearing and no acute distress on my initial evaluation when I was speaking with this patient. The patient did state that he was having a pain in the lower portion of the abdomen for 2 days. He has some minor tenderness in the right and left lower quadrants. Lab work was obtained including EKG which is nonischemic. Lab work is within normal limits. Troponin is negative. The patient had a CT of the abdomen pelvis which does not reveal any intra-abdominal pathology. This pain schedule with morphine in the emergency room and the patient will be discharged home at this time with a prescription for [place] and Colace for abdominal pain. Advised him to return to the ER any point for reevaluation if his pain were to get worse. The patient verbalized understanding and is okay to plan of care. I doubt ACS at this time given his nonischemic EKG, I doubt AAA given the fact that he has no abdominal bruit, is hemodynamically stable with no periumbilical tenderness.Differential diagnoses entertained was broad with potential high acuity. Patient has been evaluated for appendicitis, cholecystitis, and other high risk medical and surgical causes of abdominal pain. Ultimately the patient's evaluation is nondiagnostic. Based on the patient's lack of risk factors, as well as the patient's clinical, laboratory, and imaging data, the patient appears to be low risk for these high risk causes of abdominal pain. Departure Diagnosis: Primary Impression: Abdominal pain Condition: Stable STANISLAVNOELLEPEG MEDINA Nov 21, 2016 09:49
[2016-11-21] MEDS ORDERED: HYDR-906 PO (09:54)
[2016-11-21] MEDS ORDERED: DOCU-144 PO (09:54)
[2016-11-21 11:20] VITALS: BP 122/68; PULSE 79; RESP 18; TEMP 98.5
== END 2016-11-21 11:21 | disposition home or self-care (01) ==
LOC: E/R 07:34
DX: R10.84 Generalized abdominal pain (principal); I10 Essential (primary) hypertension; R11.0 Nausea; Z79.82 Long term (current) use of aspirin
CPT/HCPCS: 36415; 74176; 80053; 81003; 83690; 84484; 85025; 93005; 96374; 96375; 99285; J2270; J2405; J7030

== ENCOUNTER 2017-06-23 10:38 | Emergency (ER) | END 2017-06-23 13:02 | disposition home or self-care (01) ==

== ENCOUNTER 2017-07-20 13:19 | Observation (INO) | END 2017-07-22 12:28 | disposition home or self-care (01) ==